=== PATIENT | male | born 1985 | race Caucasian/White ===

== ENCOUNTER 2017-07-14 22:48 | Observation (INO) | payer SELFPAY ==
[~2017-07-14] VITALS: Ht 170.2 cm; Wt 77.6 kg
[2017-07-14] MEDS ORDERED: SOD CHLORIDE 0.9% 1,000 ML IV STA (23:13)
[2017-07-14] MEDS ORDERED: ONDANSETRON 4 MG INJ IV STA (23:13)
[2017-07-14] MEDS ORDERED: morphine 10 MG INJ IM ONE (23:30)
[2017-07-14 23:44] LABS: BASOPHIL # 0.1 10^3/ul (0.0-0.1); BASOPHILS % 0.6 % (0.0-2.0); EOSINOPHILS # 0.1 10^3/ul (0.0-0.5); EOSINOPHILS % 1.4 % (0.0-7.0); HEMATOCRIT 45.1 % (42.0-52.0); HEMOGLOBIN 15.9 g/dl (14.0-18.0); LYMPHOCYTES # 1.9 10^3/ul (0.8-2.9); LYMPHOCYTES % 18.4 % (15.0-51.0); MEAN CORPUSCULAR HEMOGLOBIN 31.6 pg (29.0-33.0); MEAN CORPUSCULAR HGB CONC 35.3 g/dl (32.0-37.0); MEAN CORPUSCULAR VOLUME 89.7 fl (82.0-101.0); MEAN PLATELET VOLUME 9.8 fl (7.4-10.4); MONOCYTE # 0.6 10^3/ul (0.3-0.9); MONOCYTES % 6.3 % (0.0-11.0); NEUTROPHIL # 7.4 10^3/ul (1.6-7.5); NEUTROPHILS % 72.8 % (39.0-77.0); PLATELET COUNT 245 10^3/UL (140-415); RED BLOOD COUNT 5.03 10^6/ul (4.70-6.10); RED CELL DISTRIBUTION WIDTH 12.7 % (11.5-14.5); WHITE BLOOD COUNT 10.2 10^3/ul (4.8-10.8)
--- NOTE | 2017-07-14 23:49 | RADRPT ---
PROCEDURE: CHEST - 1 VIEW CLINICAL INDICATION: 32-year-old male with shortness of breath and chest pain following trauma. TECHNIQUE: A single frontal AP supine portable view of the chest was performed. The images were r eviewed on a PACS workstation. COMPARISON: None. FINDINGS: The cardiomediastinal silhouette has a normal appearance. There is a shallow inspiration. There is m ild bilateral posterior dependent subsegmental atelectasis. There is no evidence for an infiltrate. The pulmonary vascularity is within normal limits. There is no evidence for pneumothorax or pneumom ediastinum. The osseous structures are intact. IMPRESSION: Shallow inspiration with bilateral posterior dependent subsegmental atelectasis. .Nathan Jama MD, MD Date Time Electronically viewed and signed by .Nathan Jama MD, on 07/14/2017 23:49 .M/
[2017-07-14] MEDS ORDERED: HYDROmorphONE 1 MG/ML SYG IV STA (23:53)
[2017-07-14 23:59] LABS: INR 0.96; PROTIME 12.9 Sec (11.9-14.9)
[2017-07-15] LABS: PARTIAL THROMBOPLASTIN TIME 24.2 Sec (25.0-35.0)
[2017-07-15 00:02] LABS: ALBUMIN 4.7 g/dl (3.3-4.9); ALBUMIN/GLOBULIN RATIO 1.3; BILIRUBIN,INDIRECT 0.5 mg/dl (0-1.1); BILIRUBIN,TOTAL 0.5 mg/dl (0.2-1.3); CREATININE 0.89 mg/dl (0.61-1.24); POTASSIUM 3.4 mmol/L (3.5-5.1); TOTAL PROTEIN 8.3 g/dl (6.1-8.1)
[2017-07-15] MEDS ORDERED: SOD CHLORIDE 0.9% 100 ML ONE (00:33)
[2017-07-15] MEDS ORDERED: IOHEXOL 300MG/ML 150 ML BTL ONE (00:33)
--- NOTE | 2017-07-15 01:26 | RADRPT ---
PROCEDURE: CT chest/abdomen/pelvis with contrast. CLINICAL INDICATION: Trauma TECHNIQUE: CT of the chest/abdomen/pelvis was performed utilizing axial images with reconstruction s in sagittal and coronal planes following the intravenous administration of 100 cc Omnipaque 300 co ntrast. The administered radiation dose is CTDI 12.9 mGy, DLP 1058 mGy-cm. One or more of the follow ing dose reduction techniques were used: automated exposure control, adjustment of the mA and/or kV according to patient size and/or use of iterative reconstruction technique. DICOM images are availa ble. COMPARISON: No pertinent prior examinations are submitted for comparison. FINDINGS: Chest: Minimal airspace disease is noted within the lower lobes. No pneumothorax or pleural effusion is se en. The tracheobronchial tree is unremarkable. The heart is normal in size. There is no evidence of pericardial effusion. There is no mediastinal or hilar adenopathy. There is no evidence of mediastinal hemorrhage. The great vessels are intact . Abdomen: The liver, spleen, pancreas, gallbladder, kidneys and adrenal glands are unremarkable. There is no abnormal distension or thickening of the bowel. The appendix is normal. There is no int ra-abdominal free air. No mesenteric or retroperitoneal hemorrhage is identified. There is no intra-abdominal adenopathy o f free fluid. Pelvis: There is no evidence of pelvic adenopathy or free fluid. The prostate and bladder are unremarkable. Osseous structures: No acute fracture or subluxation is identified. The thoracic and lumbar spine ar e intact. IMPRESSION: Mild airspace disease within the lower lobes which may be due to atelectasis, mild pulmonary contusi ons or aspiration pneumonitis. RPTAT: HIKT .Howard Kamara MD, Date Time Electronically viewed and signed by .Howard Kamara MD, on 07/15/2017 01:26 .T/
[2017-07-15] MEDS ORDERED: HYDROmorphONE 1 MG/ML SYG IV STA (04:22)
[2017-07-15 04:46] LABS: ADD UMIC NO; UR ASCORBIC ACID NEGATIVE (NEGATIVE); UR BILIRUBIN (Dip) NEGATIVE (NEGATIVE); UR BLOOD (Dip) NEGATIVE (NEGATIVE); UR CLARITY CLEAR (CLEAR); UR COLOR YELLOW (YELLOW); UR GLUCOSE (Dip) NEGATIVE (NEGATIVE); UR KETONES (Dip) NEGATIVE (NEGATIVE); UR LEUKOCYTE ESTERASE (Dip) NEGATIVE Leu/ul (NEGATIVE); UR NITRITE (Dip) NEGATIVE (NEGATIVE); UR SPECIFIC GRAVITY (Dip) 1.056 (1.003-1.030); UR TOTAL PROTEIN (Dip) NEGATIVE (NEGATIVE); UR UROBILINOGEN (Dip) NEGATIVE (NEGATIVE)
--- NOTE | 2017-07-15 04:59 | ERD ---
ER Documentation Chief Complaint Chief Complaint fell from 10ft ladder landing on cinder block wall to left ribs HPI This 32-year-old male was doing work when he fell off of a top of a 10 foot ladder and landed on a cinder block wall striking his left side and abdomen. He did not hit his head or have loss of consciousness. Severe left rib and abdominal pain makes it difficult to breathe. He feels very short of breath. His pain of any of his extremities. ROS All systems reviewed and are negative except as per history of present illness. Medications Home Meds No Active Prescriptions or Reported Meds Allergies Allergies: Coded Allergies: Penicillins (Unverified Allergy, Unknown, 07/14/17) PMhx/Soc Medical and Surgical Hx: pt denies Medical Hx, pt denies Surgical Hx Hx Alcohol Use: No Hx Substance Use: No Hx Tobacco Use: No Smoking Status: Never smoker Physical Exam Vitals Vital Signs Date Time Temp Pulse Resp B/P Pulse Ox O2 Delivery O2 Flow Rate FiO2 07/15/17 04:34 72 13 110/73 99 Nasal Cannula 2.0 07/15/17 04:10 96 2.0 27 07/15/17 03:08 83 13 114/66 100 Nasal Cannula 2.0 07/15/17 01:18 100 16 132/83 98 Nasal Cannula 2.0 07/15/17 00:17 Nasal Cannula 2 07/15/17 00:07 Nasal Cannula 2.0 07/15/17 00:02 97.8 95 14 119/78 97 Physical Exam Const: [] Severe distress, holding left side about ribs Head: Atraumatic Eyes: Normal Conjunctiva ENT: Normal External Ears, Nose and Mouth. Neck: Full range of motion..~ No meningismus. Resp: Clear to auscultation bilaterally Cardio: Regular rate and rhythm, no murmurs Chest wall: Lower ribs along left side in the anterior portion with significant exquisite point tenderness to the bottom few ribs. . Abd: Soft, Generalized mild abdominal tenderness with moderate tenderness in left mid abdomenn, non distended. Normal bowel sounds Skin: No petechiae or rashes Back: No midline or flank tenderness Ext: No cyanosis, or edema, ambulatory with no pain to palpation of shoulders elbows, wrists and bones knees hips rocking her pelvis, ankles. Distal pulses intact all 4 extremities Neur: Awake and alertand oriented 3, no focal deficits cranial nerves II through XII intact, no cerebellar deficits. Psych: There is anxious. Result Diagram: 07/14/17 2320 07/14/17 2320 Results 24 hrs Laboratory Tests Test 07/14/17 04:15 07/14/17 23:20 Urine Color YELLOW Urine Clarity CLEAR Urine pH 5.0 Urine Specific Hunter 1.056 Urine Ketones NEGATIVEmg/dL Urine Nitrite NEGATIVEmg/dL Urine Bilirubin NEGATIVEmg/dL Urine Urobilinogen NEGATIVEmg/dL Urine Leukocyte Esterase NEGATIVELeu/ul Urine Hemoglobin NEGATIVEmg/dL Urine Glucose NEGATIVEmg/dL Urine Total Protein NEGATIVEmg/dl White Blood Count 10.210^3/ul Red Blood Count 5.0310^6/ul Hemoglobin 15.9g/dl Hematocrit 45.1% Mean Corpuscular Volume 89.7fl Mean Corpuscular Hemoglobin 31.6pg Mean Corpuscular Hemoglobin Concent 35.3g/dl Red Cell Distribution Width 12.7% Platelet Count 00970^3/UL Mean Platelet Volume 9.8fl Neutrophils % 72.8% Lymphocytes % 18.4% Monocytes % 6.3% Eosinophils % 1.4% Basophils % 0.6% Nucleated Red Blood Cells % 0.0/100WBC Neutrophils # 7.410^3/ul Lymphocytes # 1.910^3/ul Monocytes # 0.610^3/ul Eosinophils # 0.110^3/ul Basophils # 0.110^3/ul Nucleated Red Blood Cells # 0.010^3/ul Prothrombin Time 12.9Sec Prothrombin Time Ratio 1.0 INR International Normalized Ratio 0.96 Activated Partial Thromboplast Time 24.2Sec Sodium Level 144mmol/L Potassium Level 3.4mmol/L Chloride Level 105mmol/L Carbon Dioxide Level 25mmol/L Anion Gap 17 Blood Urea Nitrogen 11mg/dl Creatinine 0.89mg/dl Glucose Level 148mg/dl Calcium Level 10.0mg/dl Total Bilirubin 0.5mg/dl Direct Bilirubin 0.00mg/dl Indirect Bilirubin 0.5mg/dl Aspartate Amino Transf (AST/SGOT) 25IU/L Alanine Aminotransferase (ALT/SGPT) 42IU/L Alkaline Phosphatase 71IU/L Total Protein 8.3g/dl Albumin 4.7g/dl Globulin 3.60g/dl Albumin/Globulin Ratio 1.30 Lipase 55U/L Current Medications Medications (Trade) Dose Ordered Sig/Balaji Route PRN Reason Start Time Stop Time Status Last Admin Dose Admin Morphine Sulfate 8 mg 8 mg ONCE ONCE IM 07/14/17 23:30 07/14/17 23:31 DC Sodium Chloride (NS) 1,000 ml @ 1,000 mls/hr Q1H STAT IV 07/14/17 23:13 07/15/17 00:12 DC 07/14/17 23:22 Ondansetron HCl (Zofran Inj) 4 mg ONCE STAT IV 07/14/17 23:13 07/14/17 23:16 DC 07/14/17 23:24 Hydromorphone HCl (Dilaudid) 1 mg ONCE STAT IV 07/14/17 23:53 07/14/17 23:54 DC 07/14/17 23:59 IV Flush 10 ml 10 ml STK-MED ONCE .ROUTE 07/15/17 00:33 07/15/17 00:34 DC Sodium Chloride (NS) 100 ml @ ud STK-MED ONCE .ROUTE 07/15/17 00:33 07/15/17 00:34 DC Iohexol (Omnipaque 300mg/ ml) 150 ml STK-MED ONCE .ROUTE 07/15/17 00:33 07/15/17 00:34 DC Hydromorphone HCl (Dilaudid) 1 mg ONCE STAT IV 07/15/17 04:22 07/15/17 04:23 DC 07/15/17 04:32 Ondansetron HCl (Zofran Inj) 4 mg BRIDGE ORDER PRN IV NAUSEA AND/OR VOMITING 07/15/17 05:30 07/16/17 05:29 Acetaminophen (Tylenol Tab) 650 mg ER BRIDGE PRN PO MILD PAIN/FEVER 07/15/17 05:30 07/16/17 05:29 Procedures/MDM Significant mechanism injury with persistent left-sided rib and abdominal pain, splinting on respirations. CT with contrast of chest and abdomen negative for any viscus rupture or fracture. Patient was given a liter of fluid as well as 8 mg of morphine and required 2 separate doses of Dilaudid so far to control his pain. Still has significant pain and was given incentive spirometer teaching but is having difficulty taking deep breaths. Due to severe contusions I believe needs to be admitted for pain control to assure that he can breathe properly as he still has significant pain in spite of medications. No signs of ischemia or organ rupture. Attempt was made to transfer the patient at [facility] because he is a trauma patient however they declined transfer. Spoke with Dr. Camilo will be admitting the patient to our hospital. CT chest abdomen pelvis with contrast interpretation: I see no acute process, no fractures, no pneumothorax, normal appearance of lung parenchyma with no pulmonary edema, no evidence of viscus rupture and abdomen, no spinal fractures , no free air or obstruction. Iliac monitor interpretation: Mild sinus tachycardia and normal sinus rhythm without arrhythmias. Departure Diagnosis: Primary Impression: Intractable pain Additional Impression: Contusion of rib on left side Condition: SHEYLA Goldman DO Jul 15, 2017 04:57
[2017-07-15] MEDS ORDERED: ACETAMINOPHEN 325 MG TAB PO PRN ×2 (05:30→07:00)
[2017-07-15] MEDS ORDERED: ONDANSETRON 4 MG INJ IV PRN (05:30)
[2017-07-15] MEDS ORDERED: NACL 0.9% 3 ML SYG IV SCH (07:00)
[2017-07-15] MEDS ORDERED: morphine 2 MG INJ IV PRN (07:00)
[2017-07-15] MEDS ORDERED: ONDANSETRON 4 MG TAB PO PRN (07:00)
--- NOTE | 2017-07-15 08:16 | RADRPT ---
PROCEDURE: XR Elbow. CLINICAL INDICATION: Right elbow pain following injury TECHNIQUE: 3 views of the right elbow are available for review COMPARISON: None available FINDINGS: The osseous structures demonstrate normal alignment and mineralization. No acute fracture or disloc ation is identified. There is no posterior fat pad sign identified to indicate presence of a joint effusion. No radiopaque foreign body is identified. IMPRESSION: Unremarkable right elbow x-ray series. RPTAT: HH .Ghada Burt MD, MD Date Time Electronically viewed and signed by .Ghada Burt MD, on 07/15/2017 08:16 .G/
--- NOTE | 2017-07-15 08:16 | RADRPT ---
PROCEDURE: XR Forearm. CLINICAL INDICATION: Pain following injury TECHNIQUE: AP and lateral views of the right forearm were obtained. COMPARISON: No prior studies are available for comparison. FINDINGS: There is normal mineralization and alignment. No fracture or osseous lesion is identified. The joint spaces are well maintained. No periostitis or osteochondral lesion is identified. The soft tissue s are unremarkable. IMPRESSION: Unremarkable right forearm x-rays. RPTAT: HH .Ghada Burt MD, MD Date Time Electronically viewed and signed by .Ghada Burt MD, on 07/15/2017 08:16 .G/
--- NOTE | 2017-07-15 10:05 | HP ---
Date/Time of Note Date/Time of Note DATE: 07/15/17 TIME: 09:59 Assessment/Plan VTE Prophylaxis VTE Prophylaxis Intervention: SCD's Assessment/Plan Chief Complaint/Hosp Course This is a 32-year-old male being admitted to the [facility] floor for: #1 intractable pain status post trauma: Patient experienced a fall from a ladder. At the current time CT scan of the chest abdomen pelvis did not show any fractures, though there was evidence of pulmonary contusions. At the current time patient is in mild distress and is tender to palpation of the left lower quadrant and the ribs. Will continue monitor the patient especially his hemodynamics. Will provide him with pain control with [place] and as needed morphine for breakthrough pain. If pain persists or worsens we will have a low threshold to repeat the CT scan. Encourage incentive spirometry. #2 DVT GI prophylaxis SCDs, no GI prophylaxis indicated Further treatment strategy will be implemented as per the clinical Problems: HPI/ROS Admit Date/Time Admit Date/Time Hx of Present Illness Chief complaint: Fall off ladder, left-sided abdominal pain This 32-year-old male fell off of a top of a 10 foot ladder while trying to put on [employer] lights and landed on a cinder block wall striking his left side and abdomen. He did not hit his head or have loss of consciousness. Severe left rib and abdominal pain makes it difficult to breathe. He feels very short of breath. He denies any pain or trauma to his legs. He does report some mild pain of his right elbow. Allergies: Penicillin - anaphylaxis Medications: None ROS Const: Per HPI Eyes : No pain discharge or redness or change in visual acuity ENT: No pain, sore throat, congestion, congestion, dysphagia or discharge Respiratory: No shortness of breath, cough, sputum, wheezing, or pleuritic pain Cardiovascular: No chest pain, palpitation, PND, or edema GI : As per HPI Genitourinary: No dysuria, hematuria, flank pain , discharge or CVA tenderness Musculoskeletal: As per HPI Skin: No rash, bruising or hives Neuro: No headache, dizziness, syncope, seizure, focal weakness Endocrine: No polyuria, polydipsia, temperature intolerance Psych: No hallucination, depression, anxiety or suicidal ideation PMH/Family/Social Past Medical History Medical History: no pertinent history Past Surgical History Right sided jaw surgery when he was 5 years old Family History Significant Family History: no pertinent family hx Social History Alcohol Use: none Smoking Status: Never smoker Drug Use: none Exam/Review of Systems Vital Signs Vitals Vital Signs Date Time Temp Pulse Resp B/P Pulse Ox O2 Delivery O2 Flow Rate FiO2 07/15/17 06:50 98.1 86 13 108/68 100 Nasal Cannula 2.0 07/15/17 04:10 27 Exam Exam General: She is lying in bed in mild distress from pain HEENT: Atraumatic, normocephalic. The pupils are equal, round and reactive. Extraocular motor are intact Neck: Supple with full range of motion. No rigidity or meningismus Chest: Tender to palpation of the left lower rib cage Lungs: Clear to auscultation bilaterally no crackles rales or wheezing Heart: Normal S1-S2, Regular rhythm and rate. No murmur, S3, or S4 Abdomen: Tender to palpation of the left side of the abdomen, normal bowel sounds. No hepatosplenomegaly appreciated. Extremities: Mild tenderness palpation of the right elbow and forearm though no overt visible deformity noted Neurologic: Normal mental status, speech normal, cranial nerves II through XII are intact, motor and sensory are intact, no focal weakness Additional Comments PROCEDURE: CHEST - 1 VIEW CLINICAL INDICATION: 32-year-old male with shortness of breath and chest pain following trauma. TECHNIQUE: A single frontal AP supine portable view of the chest was performed. The images were reviewed on a PACS workstation. COMPARISON: None. FINDINGS: The cardiomediastinal silhouette has a normal appearance. There is a shallow inspiration. There is mild bilateral posterior dependent subsegmental atelectasis. There is no evidence for an infiltrate. The pulmonary vascularity is within normal limits. There is no evidence for pneumothorax or pneumomediastinum. The osseous structures are intact. IMPRESSION: Shallow inspiration with bilateral posterior dependent subsegmental atelectasis. .Nathan Jama MD, Date Time Electronically viewed and signed by .Nathan Jama MD, MD on 07/14/2017 23:49 .M/ CC: SHEYLA BARILLAS DO PROCEDURE: CT chest/abdomen/pelvis with contrast. CLINICAL INDICATION: Trauma TECHNIQUE: CT of the chest/abdomen/pelvis was performed utilizing axial images with reconstructions in sagittal and coronal planes following the intravenous administration of 100 cc Omnipaque 300 contrast. The administered radiation dose is CTDI 12.9 mGy, DLP 1058 mGy-cm. One or more of the following dose reduction techniques were used: automated exposure control, adjustment of the mA and/or kV according to patient size and/or use of iterative reconstruction technique. DICOM images are available. COMPARISON: No pertinent prior examinations are submitted for comparison. FINDINGS: Chest: Minimal airspace disease is noted within the lower lobes. No pneumothorax or pleural effusion is seen. The tracheobronchial tree is unremarkable. The heart is normal in size. There is no evidence of pericardial effusion. There is no mediastinal or hilar adenopathy. There is no evidence of mediastinal hemorrhage. The great vessels are intact. Abdomen: The liver, spleen, pancreas, gallbladder, kidneys and adrenal glands are unremarkable. There is no abnormal distension or thickening of the bowel. The appendix is normal. There is no intra-abdominal free air. No mesenteric or retroperitoneal hemorrhage is identified. There is no intra- abdominal adenopathy of free fluid. Pelvis: There is no evidence of pelvic adenopathy or free fluid. The prostate and bladder are unremarkable. Osseous structures: No acute fracture or subluxation is identified. The thoracic and lumbar spine are intact. IMPRESSION: Mild airspace disease within the lower lobes which may be due to atelectasis, mild pulmonary contusions or aspiration pneumonitis. RPTAT: HIKT .Howard Kamara MD, MD Date Time Electronically viewed and signed by .Howard Kamara MD, MD on 07/15/2017 01:26 .T/ CC: SHEYLA BARILLAS DO Labs Result Diagram: 07/14/17231907/14/172319 Medications Medications Current Medications Ondansetron HCl (Zofran Tab) 4 mg Q6H PRN PO NAUSEA AND/OR VOMITING; Start at 07:00 Acetaminophen (Tylenol Tab) 650 mg Q6H PRN PO PAIN LEVEL 1-3 OR FEVER; Start 07/15/17 at 07:00 Acetaminophen/ Hydrocodone Bitart ([place] (5/325)) 2 tab Q6H PRN PO SEVERE PAIN LEVEL 7-10; Start 07/15/17 at 07:00 Morphine Sulfate (morphine) 2 mg Q8H PRN IV BREAKTHROUGH PAIN; Start 07/15/17 at 07:00 SHANTELLE BLAKE Jul 15, 2017 10:05
[2017-07-15 10:36] VITALS: TEMP 98
[2017-07-15 12:15] VITALS: BP 113/62; PULSE 62; RESP 20; Ht 170.2 cm; Wt 77.6 kg
[2017-07-15] MEDS ORDERED: POTASSIUM CHLORIDE (SR) 20 MEQ TAB PO STA (15:37)
--- NOTE | 2017-07-15 15:38 | PN ---
Date/Time of Note Date/Time of Note DATE: 07/15/17 TIME: 15:36 Assessment/Plan VTE Prophylaxis VTE Prophylaxis Intervention: SCD's Lines/Catheters IV Catheter Type (from Nrsg): Saline Lock Assessment/Plan Assessment/Plan 32 yo M with no pmhx here with rib pain from rib contusions from falling off a ladder PLAN IS, pain control hopefully dc in AM Subjective 24 Hr Interval Summary Free Text/Dictation Pt feels ok Exam/Review of Systems Vital Signs Vitals Vital Signs Date Time Temp Pulse Resp B/P Pulse Ox O2 Delivery O2 Flow Rate FiO2 07/15/17 12:15 98.4 62 20 113/62 98 Room Air 07/15/17 10:36 2.0 07/15/17 04:10 27 Exam nad +bl breath sounds no mrg abd soft no rashes imaging results reviewed Results Result Diagram: 07/14/170 07/14/17 2320 Results 24 hrs Laboratory Tests Test 07/14/17 23:20 White Blood Count 10.2 Red Blood Count 5.03 Hemoglobin 15.9 Hematocrit 45.1 Mean Corpuscular Volume 89.7 Mean Corpuscular Hemoglobin 31.6 Mean Corpuscular Hemoglobin Concent 35.3 Red Cell Distribution Width 12.7 Platelet Count 245 Mean Platelet Volume 9.8 Neutrophils % 72.8 Lymphocytes % 18.4 Monocytes % 6.3 Eosinophils % 1.4 Basophils % 0.6 Nucleated Red Blood Cells % 0.0 Neutrophils # 7.4 Lymphocytes # 1.9 Monocytes # 0.6 Eosinophils # 0.1 Basophils # 0.1 Nucleated Red Blood Cells # 0.0 Prothrombin Time 12.9 Prothrombin Time Ratio 1.0 INR International Normalized Ratio 0.96 Activated Partial Thromboplast Time 24.2 L Sodium Level 144 Potassium Level 3.4 L Chloride Level 105 Carbon Dioxide Level 25 Anion Gap 17 H Blood Urea Nitrogen 11 Creatinine 0.89 Glucose Level 148 Calcium Level 10.0 Total Bilirubin 0.5 Direct Bilirubin 0.00 Indirect Bilirubin 0.5 Aspartate Amino Transf (AST/SGOT) 25 Alanine Aminotransferase (ALT/SGPT) 42 Alkaline Phosphatase 71 Total Protein 8.3 H Albumin 4.7 Globulin 3.60 H Albumin/Globulin Ratio 1.30 Lipase 55 Medications Medications Current Medications Ondansetron HCl (Zofran Tab) 4 mg Q6H PRN PO NAUSEA AND/OR VOMITING; Start at 07:00 Acetaminophen (Tylenol Tab) 650 mg Q6H PRN PO PAIN LEVEL 1-3 OR FEVER; Start 07/15/17 at 07:00 Acetaminophen/ Hydrocodone Bitart ([place] (5/325)) 2 tab Q6H PRN PO SEVERE PAIN LEVEL 7-10; Start 07/15/17 at 07:00 Morphine Sulfate (morphine) 2 mg Q8H PRN IV BREAKTHROUGH PAIN Last administered on 07/15/17t 14:38; Admin Dose 2 MG; Start 07/15/17 at 07:00 PAWAN MORALES MD Jul 15, 2017 15:38
[2017-07-15 17:01] VITALS: BP 118/69; PULSE 71; RESP 18
[2017-07-15] MEDS: HYDROCODONE/APAP (5/325) TAB PO PRN (17:13)
[2017-07-15 18:30] VITALS: BP 105/64; PULSE 69; RESP 16
[2017-07-15 19:40] VITALS: BP 108/63; RESP 16
[2017-07-15] MEDS: KETOROLAC 30 MG INJ IV PRN (20:55)
[2017-07-16 02:20] VITALS: BP 106/64; RESP 18
[2017-07-16 08:52] VITALS: BP 104/77; RESP 18
[2017-07-16] MEDS: KETOROLAC 30 MG INJ IV PRN (09:27)
[2017-07-16 15:30] VITALS: BP 127/80; RESP 18
[2017-07-16] MEDS: HYDROCODONE/APAP (5/325) TAB PO PRN (16:06)
--- NOTE | 2017-07-16 18:04 | RADRPT ---
PROCEDURE: Bilateral rib x-rays CLINICAL INDICATION: 32 years of age, male. Chest pain. Status post fall TECHNIQUE: 1 view of the chest and two-views of the bilateral ribs. COMPARISON: None available. FINDINGS: No acute displaced rib fracture is identified. Decreased lung volumes with vascular crowding. Lungs are otherwise clear. Cardiomediastinal contours are normal. Negative for pleural effusion or pneumothorax. Additional comment:None. IMPRESSION: 1. Negative for evidence of an acute rib fracture, although the presence of a nondisplaced rib frac ture cannot be excluded. 2. Negative for evidence of an acute chest process. RPTAT: HCTS Physician Shayy Date Time Electronically viewed and signed by Physician Shayy on 07/16/2017 18:03 /
[2017-07-16] MEDS ORDERED: NAPR500T8 PO (18:17)
--- NOTE | 2017-07-16 18:20 | PDOCDIS ---
Discharge Instructions CONDITION Patient Condition: Stable HOME CARE INSTRUCTIONS: Diet Instructions: Regular ACTIVITY: Activity Restrictions: Slowly Increase Activity Avoid heavy lifting Do not Drive Do not operate Machinery Avoid Heavy Housework Bathing Restrictions: Shower FOLLOW UP/APPOINTMENTS Follow-up Plan I have given you a list of free clinics near you. 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 While your injury heals, pain relief is very important, as it will hurt every time you breathe in or cough. Taking shallow breaths and not coughing to avoid pain will only put you at risk of a chest infection. You can look after yourself by: * regularly taking [id number] painkillers, such as tylenon and ibuprofen follow the dosage instructions on the packet * holding an ice pack to your chest regularly during the first few days to reduce the pain and swelling a bag of frozen peas wrapped in a tea towel will also work * resting periodically take time off work if you need to, especially if your work involves physical labour or the pain is severe * keeping mobile between rest periods walking around and moving your shoulders occasionally can help with your breathing and help clear any mucus from your lungs * holding a pillow against your chest if you need to cough * carrying out breathing exercises take 10 slow, deep breaths every hour, letting your lungs inflate fully each time, to help keep your lungs clear using your incentive spirometer Don't wrap a bandage tightly around your chest, as this will stop your lungs expanding properly. Try to avoid lying down or staying still for long periods. It may help to sleep more upright for the first few nights. Avoid straining and lifting heavy objects until you're feeling better, as you may injure yourself further and take longer to recover. If you smoke, stopping may also help your recovery. When to see a doctor See your GP if your pain hasn't started to improve within a few weeks. They can prescribe stronger painkillers if necessary and refer you to hospital if they feel you need further treatment. Seek medical help immediately if you develop any signs of a more serious problem , such as: * increasing shortness of breath * increasing chest pain * pain in your tummy or shoulder * coughing up blood * coughing up yellow or green mucus * a high temperature (fever) of 38C (100.4F) or above The above symptoms may indicate a chest infection or may mean a broken rib has damaged your lung, causing the lung to collapse (pneumothorax) or injuring another organ, such as the liver or spleen. PAWAN MORALES MD Jul 16, 2017 18:20
--- NOTE | 2017-07-16 18:28 | DS ---
Date/Time of Note Date/Time of Note DATE: 07/16/17 TIME: 18:24 Discharge Summary Admission/Discharge Info Admit Date/Time Jul 15, 2017 at 05:17 Discharge Date/Time Discharge Diagnosis contusion of L ribs without radiographic evidence of rib fracture Patient Condition: Good Procedures 12.15 CXR IMPRESSION: Shallow inspiration with bilateral posterior dependent subsegmental atelectasis. 12.[address] CAP FINDINGS: Chest: Minimal airspace disease is noted within the lower lobes. No pneumothorax or pleural effusion is seen. The tracheobronchial tree is unremarkable. The heart is normal in size. There is no evidence of pericardial effusion. There is no mediastinal or hilar adenopathy. There is no evidence of mediastinal hemorrhage. The great vessels are intact. Abdomen: The liver, spleen, pancreas, gallbladder, kidneys and adrenal glands are unremarkable. There is no abnormal distension or thickening of the bowel. The appendix is normal. There is no intra-abdominal free air. No mesenteric or retroperitoneal hemorrhage is identified. There is no intra- abdominal adenopathy of free fluid. Pelvis: There is no evidence of pelvic adenopathy or free fluid. The prostate and bladder are unremarkable. Osseous structures: No acute fracture or subluxation is identified. The thoracic and lumbar spine are intact. 12.15 XR R foremarm Unremarkable right forearm x-rays. 12.15XR R forearm IMPRESSION: Unremarkable right elbow x-ray series. 12.17 bl rib xrs IMPRESSION: 1. Negative for evidence of an acute rib fracture, although the presence of a nondisplaced rib fracture cannot be excluded. 2. Negative for evidence of an acute chest process. Hx of Present Illness Chief complaint: Fall off ladder, left-sided abdominal pain This 32-year-old male fell off of a top of a 10 foot ladder while trying to put on [place] lights and landed on a cinder block wall striking his left side and abdomen. He did not hit his head or have loss of consciousness. Severe left rib and abdominal pain makes it difficult to breathe. He feels very short of breath. He denies any pain or trauma to his legs. He does report some mild pain of his right elbow. Allergies: Penicillin - anaphylaxis Medications: None Hospital Course Pt admitted for rib pain after falling off a ladder. Imaging without evidence of rib fracture. Pain controlled. IS therapy initiated. Repeat XRs without fracture. Pain controlled on PO meds at time of discharge. Return precautions discussed as per discharge instructions. Home Meds Active Scripts Naproxen* (Naproxen EC*) 500 Mg Tablet., 500 MG PO BID Y for PAIN for 7 Days, #14 TAB take with milk or food Prov:PAWAN MORALES MD 07/16/17 Follow-up Plan I have given you a list of free clinics near you. 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 While your injury heals, pain relief is very important, as it will hurt every time you breathe in or cough. Taking shallow breaths and not coughing to avoid pain will only put you at risk of a chest infection. You can look after yourself by: * regularly taking [id number] painkillers, such as tylenon and ibuprofen follow the dosage instructions on the packet * holding an ice pack to your chest regularly during the first few days to reduce the pain and swelling a bag of frozen peas wrapped in a tea towel will also work * resting periodically take time off work if you need to, especially if your work involves physical labour or the pain is severe * keeping mobile between rest periods walking around and moving your shoulders occasionally can help with your breathing and help clear any mucus from your lungs * holding a pillow against your chest if you need to cough * carrying out breathing exercises take 10 slow, deep breaths every hour, letting your lungs inflate fully each time, to help keep your lungs clear using your incentive spirometer Don't wrap a bandage tightly around your chest, as this will stop your lungs expanding properly. Try to avoid lying down or staying still for long periods. It may help to sleep more upright for the first few nights. Avoid straining and lifting heavy objects until you're feeling better, as you may injure yourself further and take longer to recover. If you smoke, stopping may also help your recovery. When to see a doctor See your GP if your pain hasn't started to improve within a few weeks. They can prescribe stronger painkillers if necessary and refer you to hospital if they feel you need further treatment. Seek medical help immediately if you develop any signs of a more serious problem , such as: * increasing shortness of breath * increasing chest pain * pain in your tummy or shoulder * coughing up blood * coughing up yellow or green mucus * a high temperature (fever) of 38C (100.4F) or above The above symptoms may indicate a chest infection or may mean a broken rib has damaged your lung, causing the lung to collapse (pneumothorax) or injuring another organ, such as the liver or spleen. Primary Care Provider Care Physician No Primary Time spent on discharge: > 30 minutes PAWAN MORALES MD Jul 16, 2017 18:28
[2017-07-16 19:22] VITALS: BP 110/64; RESP 16
== END 2017-07-16 21:25 | disposition home or self-care (01) ==
LOC: E/R 22:48 → MS3 07-15 05:17 → INTOOBSV 07-15 05:17 → MS1 07-15 12:20 → UNDOADMIN 07-15 13:47 → MS3 07-15 13:47 → MS1 07-15 18:05
PROVIDERS: ADMIT Family Medicine; ATTEND Family Medicine
DX: S20.212A Contusion of left front wall of thorax, initial encounter (principal); Z88.0 Allergy status to penicillin; W11.XXXA Fall on and from ladder, initial encounter; Y93.9 Activity, unspecified; Y99.0 Civilian activity done for income or pay; Y92.9 Unspecified place or not applicable
CPT/HCPCS: 36415; 71010; 71110; 71260; 73080; 73090; 74177; 80053; 81003; 83690; 85025; 85610; 85730; 96374; 96375; 99285; G0378; J1170; J1885; J2270; J2405; J7030; Q9967

== ENCOUNTER 2017-08-28 20:26 | Emergency (ER) | END 2017-08-29 01:55 | disposition home or self-care (01) ==

== ENCOUNTER 2018-01-13 22:29 | Emergency (ER) | END 2018-01-14 02:48 | disposition home or self-care (01) ==